=== PATIENT | female | born 2000 | race Caucasian/White ===

== ENCOUNTER 2018-09-18 22:22 | Emergency (ER) | payer SELFPAY ==
[~2018-09-18] VITALS: Ht 157.5 cm; Wt 83.6 kg
[2018-09-18 22:34] VITALS: BP 108/84
[2018-09-18 22:38] VITALS: BP 108/84
--- NOTE | 2018-09-18 22:38 | NUR ---
TO LOBBY A/W BED, TAMMY PEDROZA NOTED
--- NOTE | 2018-09-19 01:05 | NUR ---
PT CALLED FOR A BED, NO ANSWER.
--- NOTE | 2018-09-19 01:10 | NUR ---
PT CALLED FOR A BED NO ANSWER.
--- NOTE | 2018-09-19 01:19 | NUR ---
PT CALLED, NO ANSWER.
== END 2018-09-19 01:05 | disposition left against medical advice (07) ==
LOC: MED 22:22
DX: R10.30 Lower abdominal pain, unspecified (principal); Z53.21 Procedure and treatment not carried out due to patient leaving prior to being seen by health care provider
CPT/HCPCS: 81002; 81025